=== PATIENT | male | born 1945 | race African-American/Black ===

== ENCOUNTER → 2018-12-18 | Outpatient (CLI) | payer OTHER, BC ==
[~2018-12-18] MED LIST: ACETAMINOPHEN325 M1 PO; ALDACTONE25 MG PO; ALLOPURINOL 10100 M1 PO; ASPIR 8181 MG PO; ASPIRIN81 M2 PO; CRESTOR5 MG PO; EFFIENT10 MG PO; FISH OIL 1,0001 EAC7 PO; LATANOPROST 0.2.5 ML OPHTHALMIC; LISINOPRIL40 MG PO; LOPRESSOR 50 MG50 M1 PO; METOPROLOL SUCC25 M1 PO; PLAVIX 75 MG TA75 M1 PO; SPIRONOLACTONE25 M1 PO; TRUSOPT5 ML OPHTHALMIC; VITAMIN D1000 UNI1 PO; ZOCOR 20 MG TAB20 M1 PO
== END ==
LOC: RAD 10:23
DX: J98.11 Atelectasis (principal); J90 Pleural effusion, not elsewhere classified; I25.10 Atherosclerotic heart disease of native coronary artery without angina pectoris; I11.9 Hypertensive heart disease without heart failure; J98.4 Other disorders of lung; E78.5 Hyperlipidemia, unspecified; K21.9 Gastro-esophageal reflux disease without esophagitis

== ENCOUNTER 2018-12-24 12:29 | Inpatient (IN) | payer OTHER, BC ==
[~2018-12-24] VITALS: Ht 170.2 cm; Wt 117.0 kg
--- NOTE | ~2018-12-24 | HC ---
[facility] [place] [address] CONSULTATION Name: ELINOR SOLANO Room #: 457-P [facility] IN M.R.#: [id number] Admission: 12/24/18 ������������������ Attend Phys: Javy Huerta MD Discharge: ������������������ Date of : 41 Report #: [id number] THIS REPORT FOR: //name// CC: Javy Hardwick DATE OF SERVICE: 12/27/2018 INPATIENT CONSULTATION REQUESTING PHYSICIAN: Dr. Huerta CHIEF COMPLAINT: Anemia. His hemoglobin was less than 7. I saw level of 6.6. He had been feeling weak and tired. From a cardiovascular standpoint, he is without having chest pain or pressure. He is on dual antiplatelet therapy with Plavix as he has had numerous coronary interventions most recently to his mid LAD. He is without hematemesis, melena, hematuria, abdominal pain or bloating. He has end-stage renal disease and has recently been placed on dialysis per Dr. Lea. PAST MEDICAL AND SURGICAL HISTORY: PCI most recently to his left anterior descending coronary artery in July; hypertension, malignant; end-stage renal disease; exogenous obesity; hyperlipidemia; prior eye surgery. HOME MEDICATIONS: Plavix 75 mg daily, generic Plavix, aspirin, amlodipine 5 mg daily, Zocor 20 mg daily, metoprolol tartrate 50 mg p.o. b.i.d., simvastatin 20 mg daily. ALLERGIES: HE HAS ALLERGIES TO CITRIC ACID. SOCIAL HISTORY: He is a remote smoker. He is . REVIEW OF SYSTEMS: GENERAL: No fevers or chills. No weight loss. HEMATOLOGIC: Positive anemia. No bleeding disorders. CARDIOVASCULAR: No chest pain. No shortness of breath, no orthopnea. GENERAL: Positive fatigue. RESPIRATORY: Denies shortness of breath or cough. SKIN: No rashes. GENITOURINARY: No hematuria. GASTROINTESTINAL: No melena or hematochezia. [facility] [address] [place] [address] CONSULTATION Name: ELINOR SOLANO Room #: 457-P [facility] IN .R.#: [id number] Admission: 12/24/18 ������������������ Attend Phys: Javy Huerta MD Discharge: ������������������ Date of : 41 Report #: [id number] PHYSICAL EXAMINATION: VITAL SIGNS: On presentation, his blood pressure is elevated at 170s/90s; this morning, his blood pressure is 145/84. He is in a sinus rhythm. GENERAL: This is a pleasant elderly male who is alert, in no apparent distress. HEENT: Eyes are intact. No facial asymmetry. NECK: Supple, no jugular venous distention. CARDIOVASCULAR: Regular, has faint apical murmur, there is no S3. LUNGS: Clear to auscultation bilaterally. ABDOMEN: Soft, nontender. EXTREMITIES: No peripheral edema. There are no focal deficits. LABORATORY DATA: Electrocardiogram shows a sinus rhythm, PVC, nonspecific ST-segment abnormality. Limited transthoracic echocardiogram per hospital reading physician, EF is 50%. PA pressure of 65 mmHg. There is severe mitral regurgitation. IMPRESSION: 1. Coronary artery disease. He presents with anemia and may require endoscopy. From a cardiovascular standpoint, I do not see any contraindication to proceeding with this diagnostic procedure. He is anticoagulated though and biopsy will be difficult, I would hold his Plavix as necessary depending on findings. 2. Mitral regurgitation. 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 Chauhan. It was a limited study on this echocardiogram. 3. End-stage renal disease. He is presently on hemodialysis. 4. Hyperlipidemia. Continue with statin therapy. ��������������������������������������������� ���������������������������������������� By: ��������������������������������������������� 0827 0025 Spenser Elizondo MD, FACC /nt
[2018-12-24 12:32] VITALS: BP 174/90
[2018-12-24 13:04] LABS: ABSOLUTE NEUTROPHILS 5.7 thou/uL (1.4-8.2); BASOPHILS 0.4 % (0.0-2.0); EOSINOPHILS 2.6 % (0.0-3.0); HEMATOCRIT 21.4 % (42.0-52.0); LYMPHOCYTES 9.9 % (24.0-44.0); MCH 30.3 pg (26.0-34.0); MCHC 32.7 g/dL (28.0-37.0); MCV 92.7 fL (80.0-100.0); PLATELET COUNT 181 thou/uL (150-400); POLYS 79.1 % (36.0-66.0); RBC 2.31 mil/uL (4.50-6.00); RDW 16.5 % (10.5-14.5); WBC 7.2 thou/uL (4.0-11.0)
[2018-12-24 13:10] LABS: ANION GAP 13 mmol/L (7-16); BUN 77 mg/dL (7-18); CALCIUM 8.2 mg/dL (8.5-10.1); CHLORIDE 107 mmol/L (98-107); CO2 25 mmol/L (21-32); CREATININE 8.5 mg/dL (0.7-1.3); GLUCOSE 116 mg/dL (74-106); POTASSIUM 3.8 mmol/L (3.5-5.1); SODIUM 145 mmol/L (136-145)
[2018-12-24 13:16] LABS: APTT 38.5 Seconds (24.5-32.8); INR 1.1; PROTIME 11.6 Seconds (9.3-11.4)
[2018-12-24 13:21] LABS: ALBUMIN 3.3 g/dL (3.4-5.0); LIPASE 190 U/L (73-393); SGOT 18 U/L (15-37); SGPT 17 U/L (30-65); TOTAL BILIRUBIN 0.6 mg/dL (<0.1-1.0); TOTAL PROTEIN 7.7 g/dL (6.4-8.2); TROPONIN-I <0.06 ng/mL (<0.06)
[2018-12-24] MEDS ORDERED: NORVASC5 MG PO (14:26)
[2018-12-24] MEDS ORDERED: FOLIC ACID1 MG PO (14:27)
[2018-12-24] MEDS ORDERED: B12INJ IM (14:28)
[2018-12-24 15:41] VITALS: BP 169/86
[2018-12-24 15:57] VITALS: BP 159/85
[2018-12-24 16:58] VITALS: BP 186/98
--- NOTE | 2018-12-24 17:18 | EKG ---
[place] [address] [facility] [place] [address] ELECTROCARDIOGRAM REPORT Name: ELINOR SOLANO Room #: 457-P ADM IN M.R.#: [id number] ������������������ Admission: 12/24/18 ������������������ Attend Phys: Javy Huerta MD Discharge: ������������������ Date of : 41 Report #: [id number] ����������������������������������������������������������������� [id number] THIS REPORT FOR: //name// [facility] ED Test Date: 2018-12-24 Test Time: 13:41:24 Pat Name: ELINOR SOLANO Department: Room: 457 P Gender: M Attache: : 1945 Requested By: Bruce Negro Order Number: [id number] MD: Charles Elliott Measurements Intervals [place] Rate: 84 P: 64 IN: 139 QRS: 62 QRSD: 90 T: 77 QT: 395 QTc: 467 Interpretive Statements Sinus rhythm Nonspecific ST segment abnormality Compared to ECG 07/21/2014 07:30:36 Premature ventricular and supraventricular complexes are no longer present Electronically Signed On 12-24-2018 17:18:42 CDT by Charles Elliott [email or web address] ��������������������������������������������� <ELECTRONICALLY SIGNED> ���������������������������������������� By: Charles Elliott MD, [facility] ��������������������������������������������� 12/24/18 1718 134 134 Charles Elliott MD, FAC /EPI
[2018-12-24 18:03] LABS: HEMOGLOBIN 6.7 gm/dL (14.0-18.0)
[2018-12-24 18:04] LABS: HEMATOCRIT 20.9 % (42.0-52.0)
--- NOTE | 2018-12-24 18:48 | NUR ---
PT ARRIVED TO ROOM FROM ED AT 16:13. ADMISSION ASSESSMENT COMPLETED. A&O,X4. C/O SOA AND SOA WITH EXERTION. [address], BASELINE HOME OXYGEN. LABORED BREATHING NOTED. LOW HGB NOTED, DR. DE GUZMAN ORDERED BLOOD TRANSFUSION WITH DIALYSIS TOMORROW. SR, HX CARDIAC STENTS X3, EDEMA BILATERAL ANKLES. PT DENIES PAIN, N/V/D, CHEST PAIN. SKIN INTACT.
[2018-12-24 20:06] VITALS: BP 165/82
[2018-12-25 03:27] VITALS: BP 152/100
[2018-12-25 03:36] LABS: HEMATOCRIT 20.3 % (42.0-52.0)
[2018-12-25 03:37] LABS: HEMOGLOBIN 6.4 gm/dL (14.0-18.0)
[2018-12-25 03:54] LABS: CALCIUM 7.3 mg/dL (8.5-10.1); CREATININE 8.7 mg/dL (0.7-1.3); PHOSPHORUS 5.8 mg/dL (2.5-4.9); POTASSIUM 4.6 mmol/L (3.5-5.1)
[2018-12-25 03:55] LABS: % SATURATION 9 % (20-39); IRON 18 ug/dL (65-175); TIBC 190 ug/dL (250-450)
--- NOTE | 2018-12-25 06:00 | NUR ---
Pt. rested quietly during the night when checked on during frequent rounds. He offers no c/o pain or discomfort. Bed alarm is on.
[2018-12-25 07:50] VITALS: BP 155/86
--- NOTE | 2018-12-25 11:20 | HC ---
[facility] [place] [address] CONSULTATION Name: ELINOR SOLANO Room #: 457-P [facility] IN M.R.#: [id number] Admission: 12/24/18 ������������������ Attend Phys: Javy Huerta MD Discharge: ������������������ Date of : 41 Report #: [id number] THIS REPORT FOR: //name// CC: Javy Hardwick DATE OF SERVICE: 12/24/2018 NEPHROLOGY CONSULTATION ATTENDING PHYSICIAN: Dr. Huerta. REASON FOR CONSULTATION: Chronic kidney disease. HISTORY OF PRESENT ILLNESS: The patient is very well known to our service, followed in the office for several years by Dr. Manuel Lea. He has chronic kidney disease, last seen in the office approximately 2 months ago, at which time his creatinine was 5.6 and rising and he was being set up and arranged for chronic dialysis therapy. The patient has become progressively short winded. He has developed swelling in his feet after being started on amlodipine. His appetite is worsened and he comes to the hospital. His creatinine is all the way up to 8.5 and he is admitted. He also has hemoglobin of only 7. PAST MEDICAL HISTORY: He has longstanding cardiovascular disease, previous coronary artery disease with 3 coronary stents, somewhat of a decreased left ventricular ejection fraction, longstanding hypertension and a history of kidney stones. HOME MEDICATIONS: Include metoprolol 50 mg b.i.d., simvastatin 20 mg daily, Plavix 75 mg daily, aspirin 81 mg daily, allopurinol 100 mg daily, amlodipine 5 mg daily. ALLERGIES: REPORTEDLY TO CITRIC ACID. SOCIAL HISTORY: Remote smoker. No alcohol. FAMILY HISTORY: Positive for heart disease, a couple of family members have with heart disease and he has some nieces with cancer. REVIEW OF SYSTEMS: . PHYSICAL EXAMINATION: GENERAL: He is reasonably well appearing, somewhat overweight gentleman, in no acute distress. [facility] [address] [place] [address] CONSULTATION Name: ELINOR SOLANO Room #: 457-P [facility] IN M.R.#: [id number] Admission: 12/24/18 ������������������ Attend Phys: Javy Huerta MD Discharge: ������������������ Date of : 41 Report #: [id number] SKIN: Shows no lesions. SKELETAL: Well-developed, well-nourished. No amputations. HEENT: Extraocular movements are full. Vision appears to be intact. No scleral icterus. Hearing intact. Mucous membranes moist. Tongue, buccal mucosa benign. NECK: Supple, no carotid bruits or JVD. CHEST: Clear to auscultation. HEART: Regular. No murmurs, gallops or rubs. ABDOMEN: Soft and nontender. There is an umbilical hernia, but this is nontender. EXTREMITIES: Show 1+ ankle edema. Peripheral pulses are slightly diminished. NEUROLOGIC: Grossly intact. LABORATORY AND DIAGNOSTIC DATA: Hemoglobin is 6.7, platelets 181. Sodium 145, potassium 3.8, chloride 107, bicarbonate 25, BUN 77, creatinine 8.5, MCV is normal on the hematocrit. ASSESSMENT: 1. Chronic kidney disease. He has progressive chronic kidney disease, now in need of dialysis. We will have a tunneled catheter placed tomorrow and initiate chronic dialysis therapy. 2. Anemia. The anemia is likely due to the chronic kidney disease. I will check iron studies for completeness. We may indeed give him 1 unit of packed red blood cells tomorrow with his first dialysis treatment. 3. Coronary artery disease, status post multiple coronary artery stents. 4. History of hypertension. ��������������������������������������������� <ELECTRONICALLY SIGNED> ���������������������������������������� By: Mateo Sheriff MD ��������������������������������������������� 12/25/18 1120 1824 0725 Mateo Sheriff MD /nt
--- NOTE | 2018-12-25 12:19 | NUR ---
PT ADMITTED RELATED TO DYSPNEA, ANEMIA. CM REVIEWED CHART WITH CARE TEAM. CM MET WITH PT AND SPOUSE AT BEDSIDE THIS DAY. PT IS A&O X4. CM ROLE INTRODUCED. PT AND SPOUSE INDICATED THAT THEY LIVE IN A HOUSE WITH 2 STEPS TO ENTER AND NO STEPS INSIDE. 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 PT HAS HOME O2 THEY ARE UNCERTAIN TO THE PROVIDER PT HAD ONLY BEEN ON IT FOR A WEEK. PT INDICATED HE PLANS TO RETURN HOME ONCE MEDICALLY STABLE. CM TO FOLLOW INDICATED WITH DC PLANNING.
--- NOTE | 2018-12-25 17:51 | NUR ---
PT A&OX4, VSS, DENIES PAIN. PT HAS HAD DIALYSIS CATHETER PLACED RIGHT CHEST. DIALYSIS COMPLETED, 1300 MLS TAKEN OFF. 1 UNIT OF PRBC GIVEN TODAY. H&H SCHEDULED TO BE REDRAWN AND AN HEP B SERVICE ANTIGEN. PT ON RENAL DIET. PT RESTING IN BED, LOWEST POSITION. SAFETY PRECAUTIONS IN PLACE, WILL CONTINUE TO MONITOR.
[2018-12-25 18:44] LABS: HEMATOCRIT 23.7 % (42.0-52.0); HEMOGLOBIN 7.8 gm/dL (14.0-18.0)
[2018-12-25 18:56] VITALS: BP 167/99
[2018-12-26 03:36] VITALS: BP 160/88
[2018-12-26 04:24] LABS: HEMOGLOBIN 7.6 gm/dL (14.0-18.0); MCH 30.4 pg (26.0-34.0); MCHC 33.3 g/dL (28.0-37.0); MCV 91.4 fL (80.0-100.0); RBC 2.51 mil/uL (4.50-6.00); RDW 16.8 % (10.5-14.5); WBC 7.2 thou/uL (4.0-11.0)
[2018-12-26 04:26] LABS: CALCIUM 8.4 mg/dL (8.5-10.1); PHOSPHORUS 4.5 mg/dL (2.5-4.9); POTASSIUM 4.5 mmol/L (3.5-5.1)
[2018-12-26 04:33] LABS: CREATININE 6.2 mg/dL (0.7-1.3)
--- NOTE | 2018-12-26 04:47 | NUR ---
Pt. rested quietly at intervals during the night when checked on during frequent rounds. He offers no c/o pain. Ambulated to the bathroom with assistance of one and a gait belt. Bed alarm is on.
[2018-12-26 08:01] VITALS: BP 145/70
[2018-12-26 08:06] LABS: HEPATITIS B SURFACE AG Negative (Negative)
--- NOTE | 2018-12-26 08:44 | H ---
[facility] [place] [address] HISTORY AND PHYSICAL Name: ELINOR SOLANO Room #: 457-P ADM IN M.R.#: [id number] Admission: 12/24/18 ������������������ Attend Phys: Javy Huerta MD Discharge: ������������������ Date of : 43 Report #: [id number] THIS REPORT FOR: //name// CC: Mateo Chauhan MD [facility] Javy Hardwick DATE OF SERVICE: 12/24/2018 CHIEF COMPLAINT: Shortness of breath. HISTORY OF PRESENT ILLNESS: The patient is a 73-year-old white male, patient of Dr. Mauricio Hardwick, who was recently referred to Dr. Garcia's office for evaluation of increasing shortness of breath. Reportedly, the patient had a ventilation perfusion lung scan and echocardiogram performed as an outpatient, which were both benign. However, the patient was found to be extremely anemic with hemoglobin of 6.8 and he was instructed to come to the Emergency Room for further evaluation and treatment. His past medical history is extensive and includes coronary artery disease for which he has at least 3 and possibly more coronary stents, especially involving the left anterior descending coronary artery. He also has chronic kidney disease and in the Emergency room today had a creatinine of 8.5. He currently follows with Dr. Manuel Lea for that. His artificial teeth inspector of record is Dr. Chauhan. PAST MEDICAL HISTORY: Also includes hypertension, gastroesophageal reflux disease, gout, kidney stones in the past, hyperlipidemia, obesity. ALLERGIES: HE IS ALLERGIC TO CITRIC ACID CONTAINING FOODS. MEDICATIONS: List from home includes metoprolol tartrate 50 mg by mouth twice daily, simvastatin 20 mg by mouth nightly, Plavix 75 mg by mouth daily, vitamin D3 1000 units by mouth nightly, aspirin 81 mg by mouth daily, dorzolamide eyedrops one drop in each eye twice daily, allopurinol 100 mg by mouth daily, amlodipine 5 mg by mouth daily, folic acid 1 mg by mouth daily and vitamin B12 1000 mcg/mL, 1 mL IM monthly. SOCIAL HISTORY: He is retired. He smoked in the remote past, but not at least in the last 20 years. He denies any alcohol or recreational drug abuse problems. REVIEW OF SYSTEMS: He denies headache or visual changes recently. His hearing is good. No difficulties with appetite or swallowing. He denies chest pain at rest or with exertion. No abdominal pain and his bowel movements are regular. [address] [address] HISTORY AND PHYSICAL Name: ELINOR SOLANO Room #: 457-P [facility] IN .R.#: [id number] Admission: 12/24/18 ������������������ Attend Phys: Javy Huerta MD Discharge: ������������������ Date of : 43 Report #: [id number] Good urinary control. Extremities have no new problems. He denies any swelling. He denied the recent trauma. PHYSICAL EXAMINATION: VITAL SIGNS: In the Emergency Room showed a pulse of 86 per minute, respirations of 30 per minute on oxygen at 2 liters per nasal cannula and a pulse oximetry of 90%. His blood pressure on arrival was 174/90 and there is a self-reported weight on admission of 245 pounds. GENERAL: The patient is an obese black male, in no distress at the time of my examination. HEENT: The extraocular muscles are intact. The oropharynx is slightly dry and pink. No lesions. No exudates. SKIN: Appears somewhat pale. LUNGS: Coarse in the bases bilaterally, but otherwise fairly clear. No wheezes are heard except with coughing. CARDIAC: Distant, but regular. ABDOMEN: Soft. Bowel sounds are present throughout. He has an umbilical hernia, which is sizable. It is not tender and not painful. EXTREMITIES: Without cyanosis or clubbing. The patient does report some edema lately, but his legs look fairly thin at the time of my exam. He did not have pitting edema on admission. LABORATORY DATA AND DIAGNOSTIC STUDIES: EKG in the Emergency Room shows a sinus rhythm with rate of 72 beats per minute, occasional PVCs and no evidence of ischemia. He had a second one a short while later that was comparable. Chemistry in the Emergency Room showed sodium of 145, potassium 3.8, chloride of 107, bicarbonate of 25, BUN of 77 and creatinine 8.5, both markedly elevated, the anion gap is 13, nonfasting glucose is 116 and calcium is 8.2. Total bilirubin is 0.6, AST of 18, ALT of 17, alkaline phosphatase of 111, all normal. The troponin was less than 0.06. Total protein was 7.7, albumin was 3.3 and slightly low, the lipase was normal at 190 and TSH was 1.529, which is in the normal range. The PT and PTT are both slightly elevated. The INR was 1.1 and the PTT was 38.5 seconds. The CBC showed a white blood cell count of 7200, hemoglobin of 7.0 today with hematocrit of 21.4, red blood cell indices show an MCV of 92.7, which is normal and an RDW is elevated at 16.5, platelet count was 181,000 and the differential shows 79.1% segmented neutrophils, 9.9% lymphocytes, 8% monocytes, 2.6% eosinophils, 0.4% basophils and the absolute neutrophil count was 5700. Stool was obtained for occult blood and was negative. CT scan of the abdomen and pelvis showed subcutaneous edema in the lateral right abdominal wall, but no overt hematoma or free air, no retroperitoneal hematoma or ascites. There was a fat containing umbilical hernia as noted above and moderate bilateral pleural effusions were also noted. ASSESSMENT AND PLAN: 1. Shortness of breath with marked anemia. GI consult was obtained from the ER and the consultants does not feel that this is likely to be from a [facility] [address] [place] [address] HISTORY AND PHYSICAL Name: ELINOR SOLANO Room #: 457-P [facility] IN .R.#: [id number] Admission: 12/24/18 ������������������ Attend Phys: Javy Huerta MD Discharge: ������������������ Date of : 43 Report #: [id number] gastrointestinal source. Nephrology consult was also obtained and Dr. Sheriff has already come by to see the patient. His impression is that the patient needs to start dialysis and had ordered a transfusion to be given at the time of dialysis the day following admission. 2. Hypertension - We will follow and treat accordingly. Goal is to keep systolic blood pressure below 140. 3. Coronary artery disease - Clinically stable. 4. Gastroesophageal reflux disease. We will continue current medications. 5. History of gout. We may have to reduce the allopurinol further. 6. Chronic kidney disease, can contribute to erythropoietin deficiency and thus the anemia. We will defer to Dr. Sheriff about this. We will consider iron deficiency as well. ��������������������������������������������� <ELECTRONICALLY SIGNED> ���������������������������������������� By: Javy Huerta MD ��������������������������������������������� 12/26/18 0844 2325 0015 MD wilfred Cabrera
[2018-12-26 09:15] VITALS: BP 163/90
--- NOTE | 2018-12-26 09:26 | EKG ---
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 : 1945 Requested By: Bruce Negro Order Number: [id number] MD: Charles Elliott Measurements Intervals [place] Rate: 72 P: 24 PA: 153 QRS: -4 QRSD: 96 T: -1 QT: 445 QTc: 488 Interpretive Statements Sinus rhythm Multiple premature complexes, vent & supraven Borderline T abnormalities, inferior leads Borderline prolonged QT interval Compared to ECG 07/21/2014 07:30:36 T-wave abnormality now present ectopy is now present Electronically Signed On 12-26-2018 9:26:16 CDT by Charles Elliott [email or web address] ��������������������������������������������� <ELECTRONICALLY SIGNED> ���������������������������������������� By: Charles Elliott MD, [facility] ��������������������������������������������� 12/26/18 0926 1315 1315 Charles Elliott MD, [facility] /EPI
[2018-12-26 12:07] VITALS: BP 137/64
--- NOTE | 2018-12-26 12:12 | 2DMMODE ---
[facility] [employer] [place] [address] 2 D/M-MODE ECHOCARDIOGRAM Name: ELINOR SOLANO ROSEMARIE Room #: 457-P ADM IN M.R.#: [id number] ������������� Admission: 12/24/18 ������������� Attend Phys: Javy Huerta MD Discharge: ��� ������������� ��� Date of : 41 Date of Service: 12/26/18 1212 �� Report #: [id number] �������� ��������������������������������������������[id number] THIS REPORT FOR: //name// APPROVED REPORT Study performed: 12/26/2018 11:09:48 EXAM: Limited 2D, Doppler, and color-flow Echocardiogram Patient Location: Echo lab Room #: [facility] Status: routine BSA: 2.26 HR: 75 bpm BP: 163/90 mmHg Rhythm: NSR Other Information Study Quality: Good Indications Shortness of breath, CHF. Hx: CAD, stent, HTN, HLP. (Last echo done 10/28/18) 2D Dimensions RVDd: 46.33 mm IVSd: 12.04 (7-11mm) LVDd: 55.54 mm PWd: 12.00 (7-11mm) LVDs: 40.27 (25-40mm) Volumes Left Atrial Volume (Systole) Single Plane 4CH: 112.83 mL Single Plane 2CH: 105.48 mL LA ESV Index: 51.00 mL/m2 Aortic Valve AoV Peak Yoshi.: 1.47 m/s AO Peak Gr.: 8.63 mmHg Mitral Valve E/A Ratio: 2.2 MV Decel. Time: 216.27 ms MV E Max Yoshi.: 1.21 m/s MV A Yoshi.: 0.55 m/s MV PHT: 62.72 ms IVRT: 59.98 ms [facility] [address] [address] 2 D/M-MODE ECHOCARDIOGRAM Name: ELINOR SOLANO Room #: 457-P [facility] IN [facility]#: [id number] ������������� Admission: 12/24/18 ������������� Attend Phys: Javy Huerta MD Discharge: ��� ������������� ��� Date of : 41 Date of Service: 12/26/18 1212 �� Report #: [id number] �������� ��������������������������������������������[id number] Pulmonary Vein P Vein S: 0.42 m/s P Vein D: 0.64 m/s P Vein S/D Ratio: 0.66 Tricuspid Valve TR Peak Yoshi.: 3.85 m/s RAP Estimate: 5.00 mmHg TR Peak Gr.: 59.21 mmHg PA Pressure: 64.00 mmHg Left Ventricle The left ventricle is normal size. Mild concentric left ventricular hypertrophy. Left ventricular systolic function is low normal. LVEF is 50%. Moderate diastolic dysfunction is present (pseudonormal filling). Right Ventricle Right ventricle is mildly dilated. The right ventricular systolic function is normal. Atria Left atrium is severely dilated. Right atrium is moderately dilated. Aortic Valve Aortic valve is trileaflet, mildly calcified. Trace aortic regurgitation. There is no aortic valvular stenosis. Mitral Valve The mitral valve is normal in structure. Severe mitral regurgitation. Tricuspid Valve The tricuspid valve is normal in structure. Moderate tricuspid regurgitation. Estimated PAP is 65mmHg. Pulmonic Valve The pulmonary valve is normal in structure. Trace pulmonic regurgitation. Pericardium There is no pericardial effusion. <Conclusion> Abbreviated and limited study [facility] [address] [address] 2 D/M-MODE ECHOCARDIOGRAM Name: ELINOR SOLANO Room #: 457-P [facility] IN .R.#: [id number] ������������� Admission: 12/24/18 ������������� Attend Phys: Javy Huerta MD Discharge: ��� ������������� ��� Date of : 41 Date of Service: 12/26/18 1212 �� Report #: [id number] �������� ��������������������������������������������[id number] LVEF is 50%. Moderate diastolic dysfunction is present (pseudonormal filling). Left atrium is severely dilated. Aortic valve is trileaflet, mildly calcified. Trace aortic regurgitation, no stenosis. The mitral valve is normal in structure. Severe mitral regurgitation. Estimated pulmonary artery pressure of 65mmHg. There is no pericardial effusion. ��������������������������������������������� <ELECTRONICALLY SIGNED> ���������������������������������������� By: Charles Elliott MD, [facility] ��������������������������������������������� 12/26/18 121 11 1212 Charles Elliott MD, FACC /INF
--- NOTE | 2018-12-26 15:04 | NUR ---
PT A&OX4, VSS, NO SIGNS OF DISTRESS. BREATHING SHALLOW AND RESP 22. DENIES PAIN. PT HAD ECHO AND DIALYSIS DONE TODAY. AT BEDSIDE. FALL PRECAUTIONS IN PLACE, WILL CONTINUE TO MONITOR.
--- NOTE | 2018-12-26 15:41 | NUR ---
PT UNDERGOING 2ND DAY OF DIALYSIS. CM TO FOLLOW INDICATED WITH DC PLANNING.
[2018-12-26 19:51] VITALS: BP 163/95
--- NOTE | 2018-12-27 02:51 | NUR ---
ASSUMED CARE AROUND 1900. AXOX4. AT BEDSIDE. NO S/S ACUTE DISTRESS NOTED OR REPORTED AT THIS TIME. WILL CONT TO MONITOR FOR ANY CHANGES IN CONDITION.
[2018-12-27 03:30] VITALS: BP 145/84
[2018-12-27 05:18] LABS: HEMATOCRIT 22.6 % (42.0-52.0); HEMOGLOBIN 7.5 gm/dL (14.0-18.0); MCH 30.2 pg (26.0-34.0); MCV 91.5 fL (80.0-100.0); RBC 2.47 mil/uL (4.50-6.00); RDW 17.2 % (10.5-14.5); WBC 6.6 thou/uL (4.0-11.0)
[2018-12-27 05:33] LABS: ALBUMIN 2.6 g/dL (3.4-5.0); CALCIUM 7.7 mg/dL (8.5-10.1); PHOSPHORUS 3.7 mg/dL (2.5-4.9)
[2018-12-27 15:09] VITALS: BP 133/75
--- NOTE | 2018-12-27 15:44 | NUR ---
PATIENT IN DIALYSIS THIS AM. RETURNED TO FLOOR AT 1130. PATIENT STATED FEELING MUCH BETTER TODAY. NO EDEMA NOTED. SHOWERED INDEPENDENTLY AND TOLERATED WELL. DIALYSIS REPORTED 2.2L FLUID REMOVED AND TOLERATED DIALYSIS WELL. SPOUSE AT BEDSIDE.
[2018-12-27 19:18] VITALS: BP 132/73
--- NOTE | 2018-12-28 01:42 | NUR ---
PATIENT AOX4 MAKES NEEDS KNOWN. PATIENT DENIED PAIN OR DISCOMFORT. PATIENT HAD NO SHORTNESS OF AIR OR DISTRESS THIS SHIFT. PATIENT HAD DIALYSIS TODAY AND TOLERATED WELL. PATIENT CALM AND COOPERATIVE WITH CARE AND MEDS.PATIENT IN BED ASLEEP AT THIS TIME BREATHING REGULAR AND UNLABOURED.
[2018-12-28 03:12] VITALS: BP 137/79
[2018-12-28 05:53] LABS: ALBUMIN 2.7 g/dL (3.4-5.0); CREATININE 4.7 mg/dL (0.7-1.3); PHOSPHORUS 2.9 mg/dL (2.5-4.9); POTASSIUM 4.1 mmol/L (3.5-5.1)
[2018-12-28 08:39] VITALS: BP 137/83
[2018-12-28 12:20] VITALS: BP 132/82
--- NOTE | 2018-12-28 14:54 | NUR ---
PT ALERT AND ORIENTED TIMES FOUR. VSS, 99%2L, SR ON TELE. PE DENIES PAIN/SOA. PT UP WITH ONE ASSSIT. PT TOLERATES MEDS AND MEALS. PT AT BEDSIDE. PT PROGRESING TOWRADS POC GOALS.
--- NOTE | 2018-12-28 17:21 | NUR ---
PATIENT TRANSFERRED FROM [facility], REPORT FROM ANGELICA/RN. PATIENT ALERT AND ORIENTED X 4. UP WITH SBA. FALL PRECAUTIONS IN PLACE. PT WORKED WITH PATIENT THIS AFTERNOON, AND FEELS PATIENT STILL A FALL RISK. PATIENT HAS RIGHT AC IV IN PLACE AND RIGHT UPPER NECK TEMP. DIALYSIS CATHETER. PATIENT HAS O2 AT 2 LITERS/NC IN PLACE. INFORMED DR Galvan OF PATIENT CONCERN ABOUT BLOOD THINNER IN REGARD TO PATIENT RECEIVING TUNNELED CATHETER ON SUNDAY, RECEIVED HOLD ORDERS FOR ASPIRIN AND PLAVIX, STARTED ON LOVENOX TONIGHT. PRESENT ON TRANSFER ABD AT BEDSIDE. WILL CONTINUE TO MONITOR, PATIENT DENIES ANY PAIN.
[2018-12-28 20:03] VITALS: BP 152/89
[2018-12-29 01:23] LABS: URINE BILIRUBIN NEGATIVE (Negative); URINE BLOOD 3+ (Negative); URINE CLARITY CLEAR; URINE COLOR YELLOW; URINE GLUCOSE-RANDOM* TRACE (Negative); URINE KETONES NEGATIVE (Negative); URINE LEUKOCYTES-REFLEX 1+ (Negative); URINE NITRITE-REFLEX NEGATIVE (Negative); URINE PROTEIN (DIPSTICK) 3+ (Negative); URINE SPECIFIC GRAVITY 1.015 (1.005-1.035)
[2018-12-29 01:44] LABS: BACTERIA-REFLEX 1-9 Few /HPF (None Seen); CASTS None Seen /LPF (None Seen); CRYSTALS None Seen /LPF (None Seen); SQUAMOUS 0-3 Few /LPF (0-3); URINE WBC-REFLEX 6-15 Few /HPF (0-5)
--- NOTE | 2018-12-29 03:38 | NUR ---
ASSUMED CARE OF PATIENT AT 1900. VSS. ASSESSMENT COMPLETED AT 2002 AND IS DOCUMENTED. PT CONTINUES ON 2L O2 VIA NC WITH SPO2 OF 100%. PT USES 2L O2 AT HOME. PT HAS HAD A VERY SMALL AMOUNT OF YELLOW URINE OUT AT THIS TIME. RIGHT AC IV PATENT AND SALINE LOCKED. RIGHT NECK TEMPORARY DIALYSIS ACCESS COVERED WITH OCCLUSIVE DRESSING THAT IS C/D/I. SMALL AMOUNT OF SANGUANOUS DRAINAGE NOTED IN DRESSING. PLAVIX AND ASPIRIN ON HOLD FOR PROCEDURE SUNDAY; LOVENOX GIVEN PER NOV. PT DENIES PAIN, NAUSEA, DIARRHEA. PT CURRENTLY SLEEPING SOUNDLY IN BED IN NO ACUTE DISTRESS. CALL LIGHT WITHIN REACH. BED LOCKED AND IN LOWEST POSITION. WCTM.
--- NOTE | 2018-12-29 03:53 | NUR ---
THIS NURSE AGREES WITH ASSESSMENT AND NOTES BY MATH AND SCIENCE INSTRUCTOR ON THIS PATIENT.
--- NOTE | 2018-12-29 09:16 | NUR ---
ASSUMED PATIENT AND CARES AT 0715, PATIENT IN BED SLEEP INITIALLY, NO S/S OF DISTRESS OR PAIN, PATIENT EASILY AROUSED FOR BREAKFAST, SAT UP IN BED WITH HOB ELEVATED, A&OX4, DENIES PAIN AND DISCOMFORT, RAC INTACT AND PATENT PER FLUSH, RIGHT CHEST TESSIO C/D/I, O2@2L/NC IN PLACE, VITALS AND ASSESSMENT COMPLETE, FALL PRECAUTIONS IN PLACE, PERSONAL BELONGINGS AND CALL LIGHT IN REACH, WILL CONTINUE TO MONITOR
[2018-12-29 17:11] VITALS: BP 113/56
--- NOTE | 2018-12-29 18:55 | HC ---
[facility] [place] [address] CONSULTATION Name: ELINOR SOLANO Room #: 221-P [facility] IN M.R.#: [id number] Admission: 12/24/18 ������������������ Attend Phys: Javy Huerta MD Discharge: ������������������ Date of : 41 Report #: [id number] THIS REPORT FOR: //name// CC: Javy Hardwick PULMONARY CONSULTATION REFERRING PHYSICIAN: Dr. Huerta. REASON FOR REFERRAL: Hypoxia. HISTORY OF PRESENT ILLNESS: The patient is a 73-year-old male who was admitted on 12/24/2018 for evaluation of anemia. He has end-stage renal disease. Because of his hypoxia, pulmonary consultation was requested. The patient states that he was seen by Dr. Garcia about a week ago. I could not locate the records. He was found to be hypoxic then. He was placed on 2 liters of O2. V/Q scan was said to be unremarkable. The patient has smoked, but quit many years ago. He is not aware whether he has underlying COPD. Currently, he feels well. Denies any dyspnea, chest pain, productive cough. PAST MEDICAL HISTORY: Notable for end-stage renal disease, undergoing hemodialysis, hypertension, gastroesophageal reflux disease, gout, nephrolithiasis, hyperlipidemia, obesity. He also has a history of gastroesophageal reflux disease. ALLERGIES: None to medications. HE IS ALLERGIC TO CITRIC ACID, WHICH CAUSES BRUISING. CURRENT MEDICATIONS: Reviewed. This include Lopressor, Zocor, Plavix, aspirin, Zyloprim, Norvasc, folic acid, vitamin B12. FAMILY HISTORY: Noncontributory. SOCIAL HISTORY: The patient has smoked, but quit more than 20 years ago. He is retired. Denies any alcohol use. REVIEW OF SYSTEMS: As mentioned above, otherwise 10-point system review negative. PHYSICAL EXAMINATION: GENERAL: He is awake, alert, in no apparent distress. VITAL SIGNS: Temperature is 98 degrees Fahrenheit, pulse is 70, respiratory [facility] [address] [place] [address] CONSULTATION Name: ELINOR SOLANO Room #: 221-P [facility] IN [facility]#: [id number] Admission: 12/24/18 ������������������ Attend Phys: Javy Huerta MD Discharge: ������������������ Date of : 41 Report #: [id number] rate is 20, blood pressure 130/75 mmHg, saturation 99% on 2 liters of O2. HEENT: Normocephalic, atraumatic. NECK: Supple, without lymphadenopathy or thyromegaly. CHEST: Breath sounds are good bilaterally without any rales or wheezes. CARDIOVASCULAR: Normal S1, S2. There are no murmurs or gallop. There is no JVD. There is no carotid bruit. Pulses are 2+/4+ bilaterally. ABDOMEN: Soft, nontender, no organomegaly or masses felt. GENITOURINARY: Deferred. RECTAL: Deferred. EXTREMITIES: There is no edema, cyanosis or clubbing. LABORATORY AND DIAGNOSTIC DATA: Chest x-ray shows small bilateral pleural effusion, cardiomegaly, and mild right lower lobe atelectasis. CT chest on 12/18/2018 shows small bilateral pleural effusions, otherwise unremarkable. V/Q scan performed on showed normal perfusion and ventilation scan. CT abdomen and pelvis grossly unremarkable other than fat containing umbilical hernia, moderate bilateral pleural effusions. TSH is normal. EKG was unremarkable. Echocardiogram showed ejection fraction of 50%, moderate diastolic dysfunction, severely dilated left atrium, pulmonary artery pressure measuring 65 mmHg, severe mitral regurgitation. Sodium 140, potassium 4.0, chloride 103, CO2 of 27, BUN is 32, creatinine is 5.0. Liver enzymes are grossly unremarkable. WBC 6600, hemoglobin 7.5, platelets normal. IMPRESSION: 1. Hypoxia in a 73-year-old male. He has end-stage kidney disease, undergoing hemodialysis. Recent CT chest, V/Q scan showed no evidence of pulmonary embolus, moderate bilateral pleural effusion is seen. The patient has smoked tobacco products remotely. He is anemic with hemoglobin of 7.5. Hypoxia is probably due to underlying chronic obstructive lung disease. Unclear if he has underlying sleep related breathing disorder. 2. 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 3. End-stage renal disease, on hemodialysis. 4. Hypertension. 5. Coronary artery disease. 6. Gastroesophageal reflux disease. 7. Morbid obesity, the patient should be screened for sleep apnea as mentioned above. 8. Severe mitral regurgitation by echocardiogram, ejection fraction of 50%. 9. Pulmonary hypertension with pulmonary artery pressure around 65 due to valvular heart disease and hypoxia and possible sleep disorder and chronic lung disease. RECOMMENDATION: We will continue O2 for now. I would recommend the patient to follow with Dr. Garcia whom he has seen in the past. Baseline pulmonary function will be helpful. The patient will also benefit from evaluation of sleep related [address] [place] [address] CONSULTATION Name: ELINOR SOLANO Room #: 221-P [facility] IN M.R.#: [id number] Admission: 12/24/18 ������������������ Attend Phys: Javy Huerta MD Discharge: ������������������ Date of : 41 Report #: [id number] breathing disorder. The patient already has oxygen at home, we will continue 2 liters for now. Thank you for this consultation. ��������������������������������������������� <ELECTRONICALLY SIGNED> ���������������������������������������� By: Steve Corrales MD ��������������������������������������������� 12/29/18 [id number] Steve Corrales MD /nt
[2018-12-29 20:04] VITALS: BP 156/90
--- NOTE | 2018-12-30 04:15 | NUR ---
PATIENT ALERT AND ORIENTED X4. FAMILY AT BEDSIDE IN EARLY EVENING. UP ADLIB IN ROOM. NO C/O PAIN. PATIENT HAS BEEN NPO SINCE 2358 ON 12/29/18 FOR DIALYSIS CATHETER PLACEMENT WITH DIALYSIS TO FOLLOW. RESTING QUIETLY, COOPERATIVE WITH CARE. WILL MONITOR.
[2018-12-30 06:26] VITALS: BP 169/97
--- NOTE | 2018-12-30 07:45 | NUR ---
PATIENT CARE WAS ASSUMED AT 0715.PATIENT IS ALERT AND ORIENTED X4. IS AT BED SIDE.PT IS NPO AFTER MIDNIGHT FOR DIALYSIS SHUNT PLACEMENT.DIALYSIS WAS STARTED EARLY ON PATIENT DUE TO SURGERY.IV IS INTACT.TESSO IS INTACT ON RIGHT CHEST.CALL LIGHT,PHONE AND PERSONAL BELONGINGS ARE IN PLACE.
--- NOTE | 2018-12-30 13:40 | NUR ---
PHYS.THERAPY HAS CLEARED PATIENT TO GO TO BATHROOM ON HIS OWN.FALL RISK WAS REASSESSED, AT THIS TIME.
--- NOTE | 2018-12-30 13:49 | NUR ---
Nutrition: Pt seen for f/u. States appetite is good, intake 100%. Does not like Nepro, will d/c. No new weight since 12/24, will request updated wt. Provided education on renal diet, pt receptive. Low nutrition risk.
[2018-12-30 18:36] VITALS: BP 127/75
[2018-12-30 19:13] LABS: APTT 37.2 Seconds (24.5-32.8); PROTIME 10.9 Seconds (9.3-11.4)
[2018-12-31] VITALS (7 sets, daily range): BP systolic 136–155; BP diastolic 71–88
--- NOTE | 2018-12-31 04:46 | NUR ---
PATIENT ALERT AND ORIENTED X4. UP AD UMESH. HAD SHOWER FOR SURGERY IN AM. NPO SINCE MN. DENIES PAIN. AT BS. SLEPT MOST OF NIGHT.
--- NOTE | 2018-12-31 10:48 | NUR ---
IRENE reviewed chart and spoke with nursing due to length of stay. Pt was transferred to [facility] from and is progressing towards goals for discharge. Pt to have tunneled catheter place for outpatient dialysis. Pt will need outpatient dialysis arranged. IRENE met with pt and at bedside. Discussed outpatient dialysis with pt and . Preference is for a M-W-F chair time at [facility]. Pt's states she will continue to work and would like to have an option of chair times. IRENE spoke with [place]ona in intake at [facility] regarding new referral. Clinical info faxed to Kellie at [facility] for review. Awaiting chair time at this time. IRENE is following to assist as needed with discharge planning. [facility]--
--- NOTE | 2018-12-31 19:17 | NUR ---
ASSUMED CARE OF PATIENT AT 0715, PATIENT ALERT AND ORIENTED X 4. PATIENT DENIES PAIN THIS SHIFT. PATIENT WAS NPO FOR TUNNELED CATHETER PLACMENT, WHICH WAS NOT DONE UNTIL THIS AFTERNOON. ARRIVED BACK ON THE UNIT AT 1615, ON BEDREST UNTIL 1700. DIALYSIS CATHETER SITE STARTED BLEEDING, CALLED IR AND HAD ONCAL NURSE COME, SHE CHANGED DRESSING AND WE WILL CONTINUE TO MONITOR SITE THROUGHOUT THE NIGHT. POST OP VITALS DONE, AND ARE STABLE. PATIENT VOIDS PER URINAL, NO BM THIS SHIFT. PATIENT RESUMED RENAL DIET AT DINNER. AT BEDSIDE ALL DAY. PATIENT TOOK ALL PO MEDS AT [facility]. WILL DIALYSIS TOMORROW. PATIENT MAY DISCHARGE TOMORROW.
--- NOTE | 2019-01-01 03:18 | NUR ---
Assumed pt care at 1900. Pt A/OX4,VSS.Pt has a left chest tunneled catheter inserted yesterday,moderate bleeding noted on dsg. Drsg changed at 0200 with sterile procedure,pt tolerated well. Denies pain on assessment. Voiding per urinal without any difficulties voiced. Encouraged to call for help as needed. Pt is up ad bree. Call light/personal items within reach. Resting on and off through the night,will continue to monitor pt.
[2019-01-01 09:00] VITALS: BP 144/83
--- NOTE | 2019-01-01 12:02 | NUR ---
IRENE reviewed chart and spoke with nursing. Pt had tunneled catheter placed yesterday afternoon and is currently receiving dialysis. IRENE faxed clinical info to the [facility] location and left two messages for the volunteer recruitment coordinator, Florence. Awaiting call back at this time with chair times that are available. IRENE spoke with pt's via phone to provide update. Pt's will be at the hospital soon. IRENE is following to assist as needed with discharge planning. [facility]--
[2019-01-01 13:41] VITALS: BP 144/83
[2019-01-01] MEDS ORDERED: IPRAT-ALBUT 0.5-3 ML INH (14:43)
[2019-01-01] MEDS ORDERED: ACETAMINOPHEN325 M1 PO (14:44)
[2019-01-01] MEDS ORDERED: B-12500 MCG PO (14:44)
[2019-01-01] MEDS ORDERED: NEPHROCAPS SOFT1 CAP PO (14:45)
--- NOTE | 2019-01-01 17:59 | NUR ---
ASSUMED CARE OF PATIENT AT 0715, PATIENT ALERT AND ORIENTED X 4. UP AD UMESH IN HIS ROOM. PATIENT HAS LEFT CHEST DIALYSIS CATHETER IN PLACE, RECEIVED DIALYSIS THIS AM, 1500CC OFF, VSS 158/94, HR 64 TEMP 98.5. NO C/O PAIN THIS SHIFT. PATIENT HAS RIGHT AC IV IN PLACE, REMOVED PRIOR TO DISCHARGE. DR CA HERE RECEIVED DISCHARGE ORDERS FOR HOME, ALL DISCHARGE PAPERWORK AND ALL PERSONAL BELONGINGS SENT WITH THE PATIENT. PRESENT FOR TRANSPORT TO HOME. PATIENT LEFT WITH LEFT CHEST DIALYSIS CATHETER IN PLACE FOR DIALYSIS MWF AT [facility].
== END 2019-01-01 18:04 | disposition home or self-care (01) | DRG 286 ==
LOC: ER 12:29 → EROBS 13:40 → 4W 13:40 → SICU 12-28 11:57 → ENTRNSPT 01-01 17:07 → SICU 01-01 18:04
PROVIDERS: Emergency Medicine; Hospitalist; Internal Medicine Nephrology; Nurse Practitioner; ADMIT Internal Medicine
PROC: 30233N1 Transfusion of Nonautologous Red Blood Cells into Peripheral Vein, Percutaneous Approach (ICD-10-PCS; principal; 2018-12-25)
PROC: B5181ZA Fluoroscopy of Superior Vena Cava using Low Osmolar Contrast, Guidance (ICD-10-PCS; principal; 2018-12-25)
PROC: B548ZZA Ultrasonography of Superior Vena Cava, Guidance (ICD-10-PCS; principal; 2018-12-25)
PROC: B5191ZA Fluoroscopy of Inferior Vena Cava using Low Osmolar Contrast, Guidance (ICD-10-PCS; principal; 2018-12-25)
PROC: 02HV33Z Insertion of Infusion Device into Superior Vena Cava, Percutaneous Approach (ICD-10-PCS; principal; 2018-12-25)
PROC: 06H033Z Insertion of Infusion Device into Inferior Vena Cava, Percutaneous Approach (ICD-10-PCS; principal; 2018-12-25)
PROC: 5A1D70Z Performance of Urinary Filtration, Intermittent, Less than 6 Hours Per Day (ICD-10-PCS; principal; 2018-12-25)
PROC: 5A1D70Z Performance of Urinary Filtration, Intermittent, Less than 6 Hours Per Day (ICD-10-PCS; 2018-12-26)
PROC: 5A1D70Z Performance of Urinary Filtration, Intermittent, Less than 6 Hours Per Day (ICD-10-PCS; 2018-12-27)
PROC: 5A1D70Z Performance of Urinary Filtration, Intermittent, Less than 6 Hours Per Day (ICD-10-PCS; 2018-12-30)
PROC: B244ZZZ Ultrasonography of Right Heart (ICD-10-PCS; 2018-12-31)
PROC: 02H633Z Insertion of Infusion Device into Right Atrium, Percutaneous Approach (ICD-10-PCS; 2018-12-31)
PROC: B2141ZZ Fluoroscopy of Right Heart using Low Osmolar Contrast (ICD-10-PCS; 2018-12-31)
PROC: 0JH63XZ Insertion of Tunneled Vascular Access Device into Chest Subcutaneous Tissue and Fascia, Percutaneous Approach (ICD-10-PCS; 2018-12-31)
PROC: 5A1D70Z Performance of Urinary Filtration, Intermittent, Less than 6 Hours Per Day (ICD-10-PCS; 2019-01-01)
DX: I50.43 Acute on chronic combined systolic (congestive) and diastolic (congestive) heart failure (principal); N18.6 End stage renal disease; I13.2 Hypertensive heart and chronic kidney disease with heart failure and with stage 5 chronic kidney disease, or end stage renal disease; N17.9 Acute kidney failure, unspecified; Z68.41 Body mass index [BMI] 40.0-44.9, adult; E66.01 Morbid (severe) obesity due to excess calories; I27.20 Pulmonary hypertension, unspecified; H40.9 Unspecified glaucoma; M10.9 Gout, unspecified; I34.0 Nonrheumatic mitral (valve) insufficiency; K57.90 Diverticulosis of intestine, part unspecified, without perforation or abscess without bleeding; D63.1 Anemia in chronic kidney disease; J44.9 Chronic obstructive pulmonary disease, unspecified; I25.10 Atherosclerotic heart disease of native coronary artery without angina pectoris; K21.9 Gastro-esophageal reflux disease without esophagitis; E78.5 Hyperlipidemia, unspecified; Z79.82 Long term (current) use of aspirin; Z79.899 Other long term (current) drug therapy; Z87.891 Personal history of nicotine dependence; Z95.5 Presence of coronary angioplasty implant and graft; Z88.8 Allergy status to other drugs, medicaments and biological substances; Z87.442 Personal history of urinary calculi; Z82.49 Family history of ischemic heart disease and other diseases of the circulatory system; Z99.81 Dependence on supplemental oxygen
CPT/HCPCS: 10045; 15002; 32100

== ENCOUNTER → 2020-05-14 | Outpatient (CLI) | payer OTHER, BC ==
[~2020-05-14] MED LIST changes: +B-12500 MCG PO; +B12INJ IM; +FOLIC ACID1 MG PO; +IPRAT-ALBUT 0.5-3 ML INH; +NEPHROCAPS SOFT1 CAP PO; +NORVASC5 MG PO
== END ==
LOC: RAD 08:12
PROVIDERS: ATTEND Pediatrics
DX: J90 Pleural effusion, not elsewhere classified (principal)

== ENCOUNTER → 2021-03-14 | Outpatient (CLI) | payer OTHER, BC | LOC: RAD 13:07 | PROVIDERS: ATTEND Pediatrics | DX: J90 Pleural effusion, not elsewhere classified (principal); I51.7 Cardiomegaly ==

== ENCOUNTER → 2021-09-27 | Outpatient (CLI) | payer OTHER, BC | LOC: RAD 15:51 | PROVIDERS: ATTEND Pediatrics | DX: J98.11 Atelectasis (principal); J44.9 Chronic obstructive pulmonary disease, unspecified; J90 Pleural effusion, not elsewhere classified ==